=== PATIENT | male | born 1935 | race Caucasian/White ===

== ENCOUNTER 2017-07-27 22:31 | Inpatient (IN) | payer MEDICARE ==
[~2017-07-27] VITALS: Ht 182.9 cm; Wt 73.9 kg
[2017-07-27 22:32] VITALS: BP 145/76
[2017-07-27] MEDS ORDERED: VITAMIN D-32000 UNI1 PO (22:43)
[2017-07-27] MEDS ORDERED: LIPITOR10 MG PO (22:43)
[2017-07-27] MEDS ORDERED: POTASSIUM20 PO (22:44)
[2017-07-27] MEDS ORDERED: CARDURA4 MG PO (22:44)
[2017-07-27] MEDS ORDERED: PROZAC20 MG PO (22:44)
[2017-07-27] MEDS ORDERED: ANTIVERT25 MG PO (22:45)
[2017-07-27] MEDS ORDERED: APAP650 PO (22:46)
[2017-07-27] MEDS ORDERED: NEURONTIN 300300 M1 PO (22:46)
[2017-07-27] MEDS ORDERED: VITAMIN B-1100 M1 PO (22:47)
[2017-07-27] MEDS ORDERED: UNICOMPLEX M TA1 TA1 PO (22:47)
[2017-07-27] MEDS ORDERED: ENSURE PLUS237 ML PO (22:48)
[2017-07-27] MEDS ORDERED: HALDOL 0.5 MG0.5 MG PO (22:49)
[2017-07-27] MEDS ORDERED: COUMADIN 3 MG TA3 M1 PO (22:50)
[2017-07-27] MEDS ORDERED: OSELB75 PO (22:50)
[2017-07-27 23:10] LABS: ABSOLUTE BASOPHILS 0.1 thou/uL (0.0-0.2); ABSOLUTE EOSINOPHILS 0.3 thou/uL (0.0-0.7); ABSOLUTE MONOCYTES 0.4 thou/uL (0.0-1.2); ABSOLUTE NEUTROPHILS 2.4 thou/uL (1.6-8.1); BASOPHILS 2.2 %; EOSINOPHILS 6.7 %; HEMATOCRIT 42.2 % (42.0-52.0); HEMOGLOBIN 14.3 gm/dL (14.0-18.0); LYMPHOCYTES 23.4 %; MCH 35.8 pg (26.0-34.0); MCHC 33.9 g/dL (28.0-37.0); MCV 105.6 fL (80.0-100.0); MPV 8.9 fl. (7.2-11.1); NUCLEATED RBCS 0 /100WBC; PLATELET COUNT* 90 thou/uL (150-400); POLYS 57.7 %; RBC 3.99 mil/uL (4.50-6.00); RDW-CV 14.3 % (10.5-14.5); WBC 4.2 thou/uL (4.0-11.0)
[2017-07-27 23:20] LABS: APTT 42.6 Seconds (25.0-31.3); INR 3.3; PROTIME 31.7 Seconds (9.20-11.50)
[2017-07-27 23:21] LABS: ANION GAP 5 mmol/L (7-16); BUN 14 mg/dL (7-18); CALCIUM 9.1 mg/dL (8.5-10.1); CHLORIDE 107 mmol/L (98-107); CO2 27 mmol/L (21-32); CREATININE 0.9 mg/dL (0.6-1.3); GLUCOSE 118 mg/dL (70-99); POTASSIUM 4.2 mmol/L (3.5-5.1); SODIUM 139 mmol/L (136-145)
[2017-07-27 23:28] LABS: ALBUMIN 3.2 g/dL (3.4-5.0); ALKALINE PHOSPHATASE 78 U/L (46-116); SGOT 20 U/L (15-37); SGPT 18 U/L (30-65); TOTAL BILIRUBIN 0.3 mg/dL (<0.1-1.0); TOTAL PROTEIN 6.1 g/dL (6.4-8.2); TROPONIN-I LEVEL <0.06 ng/mL (<0.06)
--- NOTE | 2017-07-27 23:56 | NUR ---
order for urine received. patient states he cannot void. DR GRAF notified.order for straight cath obtained . patients daughter, her dpoa states she would prefer patent to have fluids first. patient had declined po fluids but agreed to drinl water after discussion. po water was provided to patient.
--- NOTE | 2017-07-28 00:32 | NUR ---
PATIENTS DAUGHTER AND DPOA TALKED WITH PATIENT ABOUT CATHETER TO OBTAIN URINE FOR TESTING. PATIENT AGREED TO THIS AND STRAIGHT CATHETER WAS PLACED, URINE OBTAINED AND CATHETER WAS REMOVED.
[2017-07-28 00:43] LABS: URINE BILIRUBIN NEGATIVE (Negative); URINE BLOOD NEGATIVE (Negative); URINE CLARITY CLEAR; URINE COLOR YELLOW; URINE GLUCOSE-RANDOM NEGATIVE (Negative); URINE KETONES NEGATIVE (Negative); URINE LEUKOCYTES-REFLEX 1+ (Negative); URINE NITRITE-REFLEX NEGATIVE (Negative); URINE PROTEIN NEGATIVE (Negative); URINE SPECIFIC GRAVITY 1.025 (1.005-1.030); URINE UROBILINOGEN 0.2 E.U./dl (0.2-1.0)
[2017-07-28 00:52] LABS: CASTS None Seen /LPF (None Seen); SQUAMOUS 4-10 Moderate /LPF (0-3)
[2017-07-28 00:53] LABS: URINE RBC 0-2 Rare /HPF (0-2); URINE WBC-REFLEX 6-15 Few /HPF (0-5)
[2017-07-28 00:54] LABS: BACTERIA-REFLEX 1-9 Few /HPF (None Seen); CRYSTALS None Seen /LPF (None Seen)
--- NOTE | 2017-07-28 01:28 | NUR ---
PATIENTS DAUGHTER VEL CASTAÑEDA WHO IS DPOA AT [phone] WAS NOTIFIED OF PATIENTS ADMISSION TO HOSPITAL.
[2017-07-28 02:03] VITALS: BP 160/81
[2017-07-28 02:30] VITALS: BP 163/78
--- NOTE | 2017-07-28 03:52 | NUR ---
0209 ALERT AND ORIENTED X 4, FORGETFUL, PLEASANT MALE PATIENT TO BED 114 BY CART FROM ER IN STABLE CONDITION. LEFT ELBOW WITH INTACT BRUISE/CONTUSION FROM RECENT FALL. DRY ITCHY RASH RIGHT WRIST/FOREARM, AND BILAT SHINS. LEFT BENAVIDES WITH 2 PATCHES ESCHAR WHERE PATIENT HAS SCRATCHED. ALL AREAS DRY AND OPEN TO AIR. VITAL SIGNS STABLE. ADMISSION ROUTINES IN PROGRESS. CONTINUE TO MONITOR.
--- NOTE | 2017-07-28 05:16 | NUR ---
PATIENT RESTING QUIETLY ON HOURLY ROUNDS SINCE ARRIVAL TO UNIT. IVF'S INITIATED. FIRST DOSE DAILY ANTIBIOTIC FOR UTI WAS PROVIDED IN ER. VITAL SIGNS STABLE. BED ALARM ON FOR SAFETY. CONTINUE TO MONITOR.
[2017-07-28 07:54] VITALS: BP 125/60
--- NOTE | 2017-07-28 09:07 | NUR ---
ASSUMED CARE OF PATIENT AFTER REPORT THIS MORNING. PATIENT SLEEPING, DIFFICULT TO WAKE, BUT RESPONDED TO QUESTIONS APPROPRIATELY. ORIENTED TO SELF AND PLACE. PHYSICAL ASSESSMENT COMPLETED AND CHARTED. NO COMPLAINTS OR EVIDENCE OF PAIN. VITAL SIGNS STABLE. OXYGEN SATURATION WITHIN NORMAL LIMITS ON ROOM AIR. PATIENT IS ORDERED BEDREST. DENIED NEEDS AT TIME OF ASSESSMENT. RECEIVED ORDERS TO TRANSFER PATIENT TO TELEMETRY. NURSING WILL CONTINUE TO MONITOR.
--- NOTE | 2017-07-28 09:48 | NUR ---
REPORT CALLED AND GIVEN TO IZABELA ON . PATIENT WILL BE TRANSFERRED TO ROOM 214 AFTER MRI. NURSING WILL CONTINUE TO MONITOR.
[2017-07-28 10:08] LABS: CALCIUM 8.7 mg/dL (8.5-10.1); CREATININE 0.9 mg/dL (0.6-1.3); POTASSIUM 4.1 mmol/L (3.5-5.1); TOTAL BILIRUBIN 0.4 mg/dL (<0.1-1.0); TOTAL PROTEIN 5.9 g/dL (6.4-8.2)
--- NOTE | 2017-07-28 10:09 | NUR ---
PATIENT TAKEN TO MRI AT THIS TIME. WILL BE TRANSFERRED TO ROOM 214 AFTER MRI. NURSING WILL CONTINUE TO MONITOR.
--- NOTE | 2017-07-28 13:55 | EKG ---
[place] [address] ELECTROCARDIOGRAM REPORT Name: MAYTE KELLER Room: [address] ADM IN M.R.#: [id number] Admission: 07/28/17 Attend Phys: Jarocho Fonseca, Discharge: Date of : 39 Report #: [id number] THIS REPORT FOR: //name// [facility] ED Test Date: 2017-07-27 Test Time: 22:51:31 Pat Name: MAYTE KELLER Department: Room: [facility] Gender: M Filer Metal Patterns: RAMA : 1935 Requested By: Niles Welsh Order Number: [id number] MD: Hermilo Escoto Measurements Intervals [place] Rate: 62 P: -81 [place]: 162 QRS: -12 QRSD: 123 T: 17 QT: 426 QTc: 433 Interpretive Statements Sinus rhythm Right bundle branch block Inferior infarct, old, possible Compared to ECG 04/21/2008 07:29:36 Right bundle-branch block now present Possible Myocardial infarct finding now present Electronically Signed On 07-28-2017 13:55:03 LINTER OPERATOR by Hermilo Escoto [email or web address] <ELECTRONICALLY SIGNED> By: Hermilo Escoto MD, FACC 07/28/17 1355 2251 2251 Hermilo Escoto MD, FAC /EPI
--- NOTE | 2017-07-28 15:49 | NUR ---
PATIENT TRANSFERED TO ROOM 314. COMPREHENSIVE OPHTHALMOLOGIST TRACKING [facility] COMPLETED AND CHARTED. PATIENT IS REPORTING NO PAIN, NAUSEA OR SHORTNESS OF BREATH. BED IN LOW AND LOCKED POSITION. CALL LIGHT WITHIN REACH. FAMILY AT BEDSIDE. IV FLUIDS INFUSING. ON ROOM AIR. WILL CONTINUE TO MONITOR AT THIS TIME.
[2017-07-28 16:30] VITALS: BP 123/71
[2017-07-28 21:06] LABS: GLYCOHEMOGLOBIN (HGB A1C) 5.1 % (4.8-5.6)
[2017-07-28 21:40] VITALS: BP 166/77
[2017-07-28 23:37] VITALS: BP 133/77
[2017-07-29 04:17] VITALS: BP 130/67
[2017-07-29 04:23] LABS: HEMATOCRIT 37.8 % (42.0-52.0); HEMOGLOBIN 13.5 gm/dL (14.0-18.0); MCH 35.6 pg (26.0-34.0); MCHC 35.6 g/dL (28.0-37.0); MPV 9.1 fl. (7.2-11.1); NUCLEATED RBCS 0 /100WBC; PLATELET COUNT* 84 thou/uL (150-400); RBC 3.78 mil/uL (4.50-6.00); RDW-CV 13.7 % (10.5-14.5); WBC 4.6 thou/uL (4.0-11.0)
[2017-07-29 04:24] LABS: INR 2.7; PROTIME 25.7 Seconds (9.20-11.50)
[2017-07-29 04:53] LABS: ANION GAP 8 mmol/L (7-16); BUN 10 mg/dL (7-18); CALCIUM 8.6 mg/dL (8.5-10.1); CHLORIDE 109 mmol/L (98-107); CHOLESTEROL 138 mg/dL (<200); CO2 26 mmol/L (21-32); CREATININE 0.8 mg/dL (0.6-1.3); GLUCOSE 88 mg/dL (70-99); HDL CHOLESTEROL 51 mg/dL (>40); LDL CHOLESTEROL 76 mg/dL (<100); POTASSIUM 4.4 mmol/L (3.5-5.1); SODIUM 143 mmol/L (136-145); TC:HDL 2.7 Ratio (Not establshd); TRIGLYCERIDE 59 mg/dL (<150); VLDL 12 mg/dL (<40)
[2017-07-29 04:57] LABS: MCV 99.9 fL (80.0-100.0)
[2017-07-29 05:01] LABS: SERUM ASSESSMENT Clear
--- NOTE | 2017-07-29 05:38 | NUR ---
PATIENT HAS REMAINED ALERT AND ORIENTED X 1-2. PLEASANT AND COOPERATIVE. REPOSTIONED AND PAD CHECK Q2H. HAS BEEN INCONT OF URINE AT TIMES. SECOND BAG OF IVF'S COMPLETED AT HS. MEDS PER ORDERS. NO CHANGE IN NIH ASSESSMENT. SINUS JANET OVERNIGHT ON THE MONITOR. VITAL SIGNS STABLE. CONTINUE TO MONITOR.
[2017-07-29 05:56] LABS: ABSOLUTE EOSINOPHILS 0.2 thou/uL (0.0-0.7); ABSOLUTE LYMPHOCYTES 1.2 thou/uL (0.8-5.3); ABSOLUTE MONOCYTES 0.4 thou/uL (0.0-1.2); ABSOLUTE NEUTROPHILS 2.9 thou/uL (1.6-8.1); ANISOCYTOSIS 1+; PLATELET ESTIMATE DECREASED; POIKILOCYTOSIS 1+
[2017-07-29 08:00] VITALS: BP 131/71
[2017-07-29 12:37] VITALS: BP 131/62
--- NOTE | 2017-07-29 14:04 | 2DMMODE ---
[place] [address] 2 D/M-MODE ECHOCARDIOGRAM Name: MAYTE KELLER Room: [address] IN [facility]#: [id number] Admission: 07/28/17 Attend Phys: Jarocho Hatch Discharge: Date of : 39 Date of Service: 07/29/17 1403 Report #: [id number] THIS REPORT FOR: //name// APPROVED REPORT Study performed: 07/29/2017 11:21:11 EXAM: Comprehensive 2D, Doppler, and color-flow Echocardiogram Patient Location: In-Patient Room #: [facility] Status: routine BSA: 1.96 HR: 55 bpm BP: 130/67 mmHg Rhythm: NSR Other Information Study Quality: Adequate Indications CVA/TIA Echo Enhancing Agent Indication: Rule out Shunt Agent(s) / Amount(s) Used: Agitated Saline 10 cc 2D Dimensions LVEF(%): 78.08 (>50%) IVSd: 12.37 (7-11mm) LVOT Diam: 19.39 (18-24mm) LVDd: 40.85 mm PWd: 10.90 (7-11mm) Ascending Ao: 33.35 (22-36mm) LVDs: 21.96 (25-40mm) Aortic Root: 36.67 mm Monet's LVEF: 78.08 % Volumes Left Atrial Volume (Systole) LA ESV Index: 22.90 mL/m2 Aortic Valve AoV Peak Colin.: 1.45 m/s AO Peak Gr.: 8.46 mmHg LVOT Max P.15 mmHg AO Mean Gr.: 4.99 mmHg LVOT Mean P.24 mmHg LVOT Max V: 1.43 m/s AO V2 VTI: 32.55 cm LVOT Mean V: 0.96 m/[place] [address] 2 D/M-MODE ECHOCARDIOGRAM Name: MAYTE KELLER Room: [address] IN [facility].#: [id number] Admission: 07/28/17 Attend Phys: Jarocho Hatch Discharge: Date of : 39 Date of Service: 07/29/17 1403 Report #: [id number] QUENTIN (VTI): 3.14 cm2 LVOT V1 VTI: 34.65 cm Mitral Valve E/A Ratio: 0.72 MV Decel. Time: 304.58 ms MV E Max Colin.: 0.85 m/s MV PHT: 88.33 ms MVA (PHT): 2.49 cm2 TDI E/Lateral E': 12.14 E/Medial E': 10.63 Medial E' Colin.: 0.08 m/s Lateral E' Colin.: 0.07 m/s Pulmonary Valve PV Peak Colin.: 0.85 m/s PV Peak Gr.: 2.89 mmHg Tricuspid Valve TR Peak Gr.: 18.09 mmHg RVSP: 23.00 mmHg Left Ventricle The left ventricle is normal size. There is normal LV segmental wall motion. There is normal left ventricular wall thickness. Left ventricular systolic function is normal. The left ventricular ejection fraction is within the normal range. LVEF is 65-70%. Grade I - abnormal relaxation pattern. Right Ventricle The right ventricle is normal size. The right ventricular systolic function is normal. Atria The left atrium size is normal. Interatrial septum is intact without evidence of ASD or PFO. The right atrium size is normal. Aortic Valve The aortic valve is normal in structure. No aortic regurgitation is present. There is no aortic valvular stenosis. Mitral Valve The mitral valve is normal in structure. Mild mitral regurgitation. No evidence of mitral valve stenosis. Tricuspid Valve The tricuspid valve is normal in structure. Mild tricuspid regurgitation. The RVSP is ___23____ [place] [address] 2 D/M-MODE ECHOCARDIOGRAM Name: MAYTE KELLER Room: [address] IN M.R.#: [id number] Admission: 07/28/17 Attend Phys: Jarocho Hatch Discharge: Date of : 39 Date of Service: 07/29/17 1403 Report #: [id number] Pulmonic Valve Pulmonic valve is not well visualized. There is no pulmonic valvular regurgitation. Great Vessels The aortic root is normal in size. IVC is normal in size and collapses with >50% inspiration Pericardium There is no pericardial effusion. <Conclusion> LVEF is 65-70%. Interatrial septum is intact without evidence of ASD or PFO. <ELECTRONICALLY SIGNED> By: Prosper Baird MD, [facility] 07/29/17 1403 140 140 Prosper Baird MD, FACC /INF
--- NOTE | 2017-07-29 15:09 | NUR ---
ASSUMED CARE OF PATIENT THIS AM AT 0730. PATIENT IS ALERT ORIENTED TO PERSON AND PLACE. HE HAS BEEN ASSISTED WITH ADLS THROUGHOUT THE DAY. TELE SHOWS SR WITH A 1DAVB. PATIENT DENIES PAIN. NIH SCORES AT 1. PATIENT HAS BEEN SEEN BY PT AND OT. WILL CONTINUE TO MONITOR PATIENT'S ORIENTATION AND SAFETY. NO FALLS OR INJURY.
--- NOTE | 2017-07-29 15:15 | NUR ---
CM ASSESSMENT: Pt resides at [facility]. Pt admitted to [facility] on 05/27 for skilled, then transitioned to LTC. Pt has a walker that he can use for mobility. Pt's dtr is available for information, but their relationship is strained. Spoke with Garrison at [facility], they are able to accept Pt back at dc. Pt will need skilled, anticipate dc within next 2 days. Following.
--- NOTE | 2017-07-29 15:53 | CON ---
[address] [address] CONSULTATION Name: MAYTE KELLER Room: [address] IN .R.#: [id number] Admission: 07/28/17 Attend Phys: Jarocho Fonseca, Discharge: Date of : 39 Report #: [id number] THIS REPORT FOR: //name// CC: Mayte Fonseca DATE OF SERVICE: 07/28/2017 HISTORY OF PRESENT ILLNESS: This is a 81-year-old male patient who is a very poor historian. He indicates he lives at home. I do not have any family member, which can provide any history. I reviewed the records in the computer and looks like this patient presented to Emergency Room with complaint of falls and looks like he came there last evening and he was worked up for the falls and he did have a CT scan of the head, which showed chronic changes, but no acute changes were identified. He also had CT of the cervical spine, which does not show any definite abnormality. The patient still is confused and when I saw him, he was not talking appropriately. He does not provide any good history. REVIEW OF SYSTEMS: Indicates that this patient according to him lives alone. I will try to reach the patient's daughter to see if that history is even reliable, but on examination he is pretty weak on the right side. He does not know how long he has been weak there. He has a history of DVTs, COPD, hypertension, cholecystectomy, restless leg syndrome. This was his relevant 14-point review of systems. PAST MEDICAL HISTORY: Negative for stroke, but the patient is definitely weak on the right side on my examination, in fact, he is weak all over. SOCIAL HISTORY: He says he does not smoke or drink alcohol, but again history is not reliable. PHYSICAL EXAMINATION: He is sleepy, but he can be awake and when I wake him up he does not know what month it is, what hospital he is in. His speech looks poor. His cranial nerve examination 2-12 does appear to be showing weakness on the right side of the face. He does not cooperate with the position sense, cerebellar signs or papilledema. His heart sounds looks unremarkable. He is not in respiratory distress. His blood pressure is 125/60, respirations 16, pulse is 65, temperature is 98. LABORATORY DATA: Indicate MCV of 105. CT is unremarkable. IMPRESSION: It looks like this patient has cerebrovascular accident, which has affected the right side of the body. We need to get hold of some family member to see what his baseline condition is. I tried to talk to the patient, assistant counsel him, what we would like to do, but this patient is not able to cooperate. I will try to get hold of the family and dictate [place] [address] CONSULTATION Name: MAYTE KELLER Room: [address] IN .R.#: [id number] Admission: 07/28/17 Attend Phys: Jarocho Fonseca, Discharge: Date of : 39 Report #: [id number] should be worked up for CVA involving the right side of the body if this deficit is new. Thank you very much for this referral. We will continue to try to get hold of the patient's daughter. this addendum is being added at the time of signing this note. I was able to reach the patient's daughter after dictating this note yesterday. I talked to her and she indicated that this patient has dementia. He has significant cognitive decline. It looks like he also had problem with alcohol some time. I had discussed with her our options in that regard. We decided because of his condition we will do some limited workup and decide about further management later on. I don't think the patient understood the things. I had counseled this patient first but then I called the patient's daughter and consult the patient's daughter about their options and they understood very well. More than 50 minutes of time was spent taking care of this patient today and majority of that time was spent counseling the patient first and then counseling the patient's daughter and coordinating the patient's care. <ELECTRONICALLY SIGNED> By: Rodrigue Nassar MD 07/29/17 1553 0954 14Rodrigue Nassar MD /nt
[2017-07-29 16:57] VITALS: BP 117/56
[2017-07-29 20:00] VITALS: BP 117/63
[2017-07-30 00:21] VITALS: BP 130/52
--- NOTE | 2017-07-30 04:17 | NUR ---
RESING WITHOUT COMPLAINTS. BED IN LOW POSITION, CALL LIGHT WITHIN REACH, BED ALARM ON. NO SIGNS OF DISTRESS. CONT WITH PLAN OF CARE.
[2017-07-30 04:19] LABS: INR 2.2; PROTIME 20.8 Seconds (9.20-11.50)
[2017-07-30 04:22] VITALS: BP 121/55
[2017-07-30 08:08] VITALS: BP 119/70
--- NOTE | 2017-07-30 10:24 | NUR ---
ASSUMED CARE OF PT THIS AM AROUND 0715- POST GRADUATE INTERN IN PLACE ORDERED, TRACING SB WITH 1ST DEGREE- UPON ASSESSMENT PT NOTED TO BE RESTIN IN BED, EYES CLOSED, EASILY AROUSABLE- PT A&O X3, WITH REPORTED FORGETFULLNESS- CONTINENT VS INCONTINENT OF BOWEL AND BLADDER- Q [address] INDICATED- LCTA, RESP EVEN AND UN-LABORED- VSS, O2 SAT 94% ON RA- ABDOMEN SOFT/ROUND/NON-TENDER, BS X4 QUADS- LAST BM REPORTED 07/27/17- IV NOTED TO RIGHT FA INTACT AND SL, COBAN IN PLACE- SCAB NOTED TO LLE- GOOD PO INTAKE NOTED THIS AM WITH BREAKFAST- PT DENEIS ANY C/O PAIN/DISCOMFORT AT THIS TIME- CALL LIGHT AND PERSONAL BELONGINGS WITH IN REACH- HOURLY ROUNDS IN PLACE R/T SAFETY/NEEDS- ALL NEEDS MET AT THIS TIME-WCTM
[2017-07-30 12:00] VITALS: BP 94/52
[2017-07-30 16:00] VITALS: BP 119/64
--- NOTE | 2017-07-30 17:31 | NUR ---
PT AVAENLTHyalee RESTING IN BED, EATING DINNER AT THIS TIME- GOOD PO INTAKE NOTED WITH MEALS THIS SHIFT- RN SEXUAL ASSAULT IN PLACE ORDERED, TRACING SB WITH 1ST DEGREE- IV TO RIGHT FA INTACT AND SL- D/C PLANNING TO SKILLED REHAB FOR 07/31/17 NOTED- UP WORKING WITH THERAPIES THIS SHIFT PRESCIBED, TOLERATING WELL- UP TO BED SIDE CHAIR INDICATED- PT DENIES ANY C/O PAIN/DISCOMFORT AT THIS TIME- CALL LIGHT AND PERSONAL BELONGINGS WITH IN REACH- BED ALARM IN PLACE AND WORKING FOR PT SAFETY- PT CHECKED ON FREQUENLTY R/T SAFETY/NEEDS- ALL NEEDS MET AT THIS TIME-WCTM
[2017-07-30 20:00] VITALS: BP 113/62
[2017-07-31] VITALS: BP 124/64
--- NOTE | 2017-07-31 00:50 | NUR ---
RESTING THROUGH THE SHIFT. DENIES PAIN OR DISCOMFORT. ASSIST WITH TURNING. BED IN LOW POSITION, CALL LIGHT IN REACH, BED ALARM ON. NO SIGN OF DISTRESS AT THIS TIME.
[2017-07-31 04:00] VITALS: BP 115/70
[2017-07-31 05:18] LABS: INR 2.1; PROTIME 20.1 Seconds (9.20-11.50)
[2017-07-31 07:54] VITALS: BP 98/53
--- NOTE | 2017-07-31 09:34 | NUR ---
ASSUMED CARE OF PT THIS AM AROUND 0715- ANTIQUE AUTOMOBILES REPAIRER IN PLACE ORDERED, TRACING SB WITH 1ST DEGREE- UPON ASSESSMENT PT NOTED TO BE RESTING IN BED, EYES CLOSED- EASILY ARROUSABLE- PT A&O X3- CONTINENT OF BOWEL AND BLADDER, USING URINAL AT BEDSIDE- ASSIST X1 WITH TRANSFERS- LCTA, RESP EVEN AND UN-LABORED- VSS, O2 SAT 98% ON RA- ABDOMEN SOFT/ROUND/NON-TENDER, BS X4 QUADS- LAST BM REPORTED 07/27/17- IV NOTED TO RIGHT FA INTACT AND SL, COBAN IN PLACE- GOOD PO INTAKE NOTED THIS AM WITH BREAKFAST- PT DENIES ANY C/O PAIN/DISCOMFORT AT THIS TIME- CALL LIGHT AND PERSONAL BELONGINGS WITH IN REACH- HOURLY ROUNDS IN PLACE R/T SAFETY/NEEDS- BED ALARM IN PLACE AND WORKING FOR PT SAFETY- ALL LNEEDS MET AT THIS TIME-WCTM
[2017-07-31 10:06] VITALS: BP 98/53
[2017-07-31 11:30] VITALS: BP 123/64
[2017-07-31] MEDS ORDERED: NEXIUM40 MG PO (13:22)
[2017-07-31] MEDS ORDERED: ASPIR 8181 MG PO (13:22)
[2017-07-31] MEDS ORDERED: CEFUROXIME250 MG PO (13:23)
--- NOTE | 2017-07-31 14:58 | NUR ---
MARKIE FOR D/C ORDERS RECIVED THIS SHIFT PER BACK TO [facility]- CM HERE TO ARRANGE D/C BACK TO [facility] WITH EMPLOYMENT SPECIALIST/PROGRAM MANAGER TIME VIA W/C SCHEDULED FOR 1500- IV TO RIGHT FA D/C ALONG WITH CLASSROOM MONITOR PRIOR TO D/C- D/C TEACHING/EDUCATION GIVEN TO PT, WITH ALL QUESTIONS AND CONCERNS ADDRESSED PRIOR TO D/C-BELONGING PACKED AND ACCOUNTED FOR PER TECH- [facility] CONTACTED AT 1425 TO GIVE REPORT AND WAS TOLD THAT LAMONTE WOULD RETURN PHONE CALL, NO RETURN PHONE CALL RECIVED AT THIS TIME- W/C VAN HERE TO EMPLOYMENT SPECIALIST/PROGRAM MANAGER PT AT 1450- PT ALONG WITH BELONGINGS NOTED TO HAVE LEFT FACILITY AT 1500- PACKET OF PAPER WORK PROVIDED TO TRANSPORTED AT THIS TIME- NO PROBLEMS TO NOTE AT TIME OF D/C
--- NOTE | 2017-08-07 19:06 | EEG ---
[facility] [address] [place] [address] EEG STUDY REPORT Name: MAYTE KELLER Room: [address] IN M.R.#: [id number] Admission: 07/28/17 Attend Phys: Jarocho Fonseca, Discharge: 07/31/17 Date of : 39 Report #: [id number] THIS REPORT FOR: //name// CC: Mayte Fonseca DATE OF SERVICE: 07/31/2017 This patient is being evaluated for altered mental status. EEG was done by placing the electrodes by standard 10-20 system of electrode placement. Both referential and sequential montages were used for recording. Background activity in this patient's EEG is about 8-9 Hz. It is intermixed with theta range slowing on both sides. Photic stimulation was unremarkable. The patient went to sleep that is associated with bilaterally symmetrical sleep spindle and vertex sharp waves. Throughout the record, no active epileptiform activity was noticed. IMPRESSION: Moderately abnormal EEG because it is intermixed with theta range slowing on both sides. That is a nonspecific abnormality, which can occur with encephalopathy, effect of psychotropic medication, dementia, etc. This patient is being evaluated for altered mental status. <ELECTRONICALLY SIGNED> By: Rodrigue Nassar MD 08/07/17 [id number] [id number] Nassar MD /nt
== END 2017-07-31 15:00 | DRG 689 ==
LOC: M.ERS 22:31 → M.TBA-ER 07-28 01:09 → M.2W 07-28 01:09 → M.ORTHSURG 07-28 01:09 → M.2W 07-28 11:10
PROVIDERS: Family Medicine; Internal Medicine; ADMIT Family Medicine
DX: N39.0 Urinary tract infection, site not specified (principal); G93.41 Metabolic encephalopathy; J44.9 Chronic obstructive pulmonary disease, unspecified; I10 Essential (primary) hypertension; K21.9 Gastro-esophageal reflux disease without esophagitis; R45.1 Restlessness and agitation; G31.84 Mild cognitive impairment of uncertain or unknown etiology; I48.91 Unspecified atrial fibrillation; W18.39XA Other fall on same level, initial encounter; Y93.89 Activity, other specified; Y92.89 Other specified places as the place of occurrence of the external cause; Y99.8 Other external cause status; Z86.73 Personal history of transient ischemic attack (TIA), and cerebral infarction without residual deficits; Z90.49 Acquired absence of other specified parts of digestive tract; Z86.718 Personal history of other venous thrombosis and embolism; Z79.899 Other long term (current) drug therapy; Z88.2 Allergy status to sulfonamides; Z91.041 Radiographic dye allergy status

== ENCOUNTER 2018-09-02 08:35 | Emergency (ER) | payer MEDICARE, BC, MEDICAID ==
[~2018-09-02] VITALS: Ht 167.6 cm; Wt 73.0 kg
[~2018-09-02 08:35] MED LIST: ANTIVERT25 MG PO; APAP650 PO; ASPIR 8181 MG PO; CARDURA4 MG PO; CEFUROXIME250 MG PO; COUMADIN 3 MG TA3 M1 PO; ENSURE PLUS237 ML PO; HALDOL 0.5 MG0.5 MG PO; LIPITOR10 MG PO; NEURONTIN 300300 M1 PO; NEXIUM40 MG PO; OSELB75 PO; POTASSIUM20 PO; PROZAC20 MG PO; UNICOMPLEX M TA1 TA1 PO; VITAMIN B-1100 M1 PO; VITAMIN D-32000 UNI1 PO
[2018-09-02] MEDS ORDERED: VENTOLIN HFA 1818 GM INH (08:49)
[2018-09-02] MEDS ORDERED: ARICEPT 5 MG TAB5 MG PO (08:49)
[2018-09-02] MEDS ORDERED: MUCINEX D ER 61 EACH PO (08:50)
[2018-09-02] MEDS ORDERED: MELATONIN5 M1 PO (08:50)
[2018-09-02] MEDS ORDERED: FLORASTOR250 MG PO (08:50)
[2018-09-02] MEDS ORDERED: NEPHROCAPS SOFT1 CAP PO (08:52)
[2018-09-02] MEDS ORDERED: IPRAT-ALBUT 0.5-3 ML INH (08:53)
[2018-09-02 09:34] LABS: ABSOLUTE BASOPHILS 0.1 thou/uL (0.0-0.2); ABSOLUTE EOSINOPHILS 0.1 thou/uL (0.0-0.7); ABSOLUTE LYMPHOCYTES 1.1 thou/uL (0.8-5.3); ABSOLUTE MONOCYTES 0.5 thou/uL (0.0-1.2); ABSOLUTE NEUTROPHILS 3.5 thou/uL (1.6-8.1); BASOPHILS 1.5 %; EOSINOPHILS 2.4 %; HEMATOCRIT 42.1 % (42.0-52.0); HEMOGLOBIN 14.5 gm/dL (14.0-18.0); MCH 35.6 pg (26.0-34.0); MCHC 34.5 g/dL (28.0-37.0); MCV 103.3 fL (80.0-100.0); MPV 8.2 fl. (7.2-11.1); NUCLEATED RBCS 0 /100WBC; PLATELET COUNT* 204 thou/uL (150-400); POLYS 66.1 %; RBC 4.08 mil/uL (4.50-6.00); RDW-CV 14.4 % (10.5-14.5); WBC 5.3 thou/uL (4.0-11.0)
[2018-09-02 09:36] LABS: BE 1.1 mmol/L (-2 to +3); PCO2 41.9 mmHg (35.0-45.0); PO2 86.1 mmHg (75.0-100.0); pH 7.409 (7.340-7.450)
[2018-09-02 09:55] LABS: ALBUMIN 2.9 g/dL (3.4-5.0); ALKALINE PHOSPHATASE 98 U/L (46-116); ANION GAP 7 mmol/L (7-16); BUN 13 mg/dL (7-18); CALCIUM 9.4 mg/dL (8.5-10.1); CHLORIDE 105 mmol/L (98-107); CO2 28 mmol/L (21-32); CREATININE 0.9 mg/dL (0.6-1.3); GLUCOSE 104 mg/dL (70-99); LIPASE 121 U/L (73-393); POTASSIUM 3.8 mmol/L (3.5-5.1); SGOT 25 U/L (15-37); SGPT 34 U/L (30-65); SODIUM 140 mmol/L (136-145); TOTAL BILIRUBIN 0.5 mg/dL (<0.1-1.0); TOTAL PROTEIN 7.3 g/dL (6.4-8.2); TROPONIN-I LEVEL <0.06 ng/mL (<0.06)
[2018-09-02 09:56] LABS: NT-PRO BRAIN NAT PEPTIDE 161 pg/mL (<300)
[2018-09-02 10:00] LABS: INR 4.4; PROTIME 44.3 Seconds (9.20-11.50)
[2018-09-02 10:13] LABS: INFLUENZA A ANTIGEN None Detected (None Detect); INFLUENZA B ANTIGEN None Detected (None Detect)
[2018-09-02] MEDS ORDERED: TUSSIN CF COUG118 ML PO (10:34)
[2018-09-02] MEDS ORDERED: TESSALON PERLE100 MG PO (10:34)
[2018-09-02] MEDS ORDERED: AMOXICILLIN875 MG PO (10:34)
[2018-09-02] MEDS ORDERED: ALBUTEROL2.5 MG/31 INH (10:35)
[2018-09-02 11:18] VITALS: BP 123/60
--- NOTE | 2018-09-02 14:23 | EKG ---
[place] [address] ELECTROCARDIOGRAM REPORT Name: MAYTE KELLER Room: [facility]#: [id number] Admission: 09/02/18 Attend Phys: Discharge: 09/02/18 Date of : 39 Report #: [id number] THIS REPORT FOR: //name// [facility] ED Test Date: 2018-09-02 Test Time: 08:41:00 Pat Name: MAYTE KELLER Department: Room: Gender: M Heel Attacher: : 1935 Requested By: Isaac Baltazar Order Number: [id number] MD: Prosper Baird Measurements Intervals [place] Rate: 66 P: -42 [place]: 198 QRS: -6 QRSD: 117 T: 33 QT: 434 QTc: 455 Interpretive Statements Sinus rhythm IRBBB and LPFB Low voltage, extremity and precordial leads Consider inferior infarct Probable anterolateral infarct, old Compared to ECG 07/27/2017 22:51:31 Left posterior fascicular block now present Myocardial infarct finding still present Electronically Signed On 09-02-2018 14:23:28 BONDERITE OPERATOR by Prosper Baird [email or web address] <ELECTRONICALLY SIGNED> By: Prosper Baird MD, [facility] 09/02/18 1423 0841 0841 Prosper Baird MD, [facility] /EPI
== END 2018-09-02 11:21 | disposition home or self-care (01) ==
LOC: M.ERS 08:35
PROVIDERS: Emergency Medicine
DX: J44.9 Chronic obstructive pulmonary disease, unspecified (principal); I10 Essential (primary) hypertension; K21.9 Gastro-esophageal reflux disease without esophagitis; I48.91 Unspecified atrial fibrillation; Z90.49 Acquired absence of other specified parts of digestive tract; Z90.79 Acquired absence of other genital organ(s); Z88.2 Allergy status to sulfonamides; Z91.041 Radiographic dye allergy status